=== PATIENT | female | born 1950 | race Caucasian/White ===

== ENCOUNTER 2023-02-18 10:11 | Emergency (ER) | payer OTHER ==
[~2023-02-18] VITALS: Ht 154.9 cm; Wt 86.2 kg
[2023-02-18] MEDS ORDERED: ATORVASTATIN CA10 MG PO (10:47)
[2023-02-18] MEDS ORDERED: METOPROLOL SUC100 MG PO (10:47)
== END 2023-02-18 12:18 | disposition home or self-care (01) ==
LOC: ER 10:11
DX: S90.02XA Contusion of left ankle, initial encounter (principal); S90.32XA Contusion of left foot, initial encounter; Y99.9 Unspecified external cause status; W19.XXXA Unspecified fall, initial encounter; Y93.89 Activity, other specified; Y92.89 Other specified places as the place of occurrence of the external cause; I10 Essential (primary) hypertension